=== PATIENT | female | born 1960 | race Caucasian/White ===

== ENCOUNTER → 2018-05-27 08:38 | Outpatient (CLI) | payer MEDICARE, SELFPAY ==
--- NOTE | 2018-05-27 08:50 | XR_ITS ---
XR DEXA axial skeleton HISTORY: ITS.REASON: POST MENOPAUSAL ORDERING PHYSICIAN: Matt Pretty JR PATIENT AGE: 58 years COMPARISON: 03/17/2014 FINDINGS: The BMD measured at the Right femoral neck is 0.831 g/cm squared with a T score of -1.5. This is considered Osteopenic according to the World Health Organization criteria. Fracture risk is Moderate. Treatment is advised. The L1 L4 density has a T score of 0.0 and is unchanged. The mean hip density has increased by 4.8%. IMPRESSION: Osteopenia with moderate fracture risk. Recommend follow-up exam May 2020
--- NOTE | 2018-05-27 08:51 | MM_ITS ---
MM Dig screening mamm BI w/CAD ORDERING PHYSICIAN : Matt Pretty JR PATIENT AGE: 58 years GENDER: Female COMPARISON: October bilateral mammogram INDICATION: ITS.REASON: SCREENING .. Does taking Female Hormones. With Estrogen noted prior history sheet as well. No new complaintsNoncontributory family history TECHNIQUE: Standard CC and MLO images were obtained. R2 CAD reviewed. FINDINGS: Mild to moderate residual fibroglandular elements in both breasts. Mild asymmetry again observed but appears similar to previous studies with no suspicious lesions. No dominant mass no suspicious calcifications. RIGHT BREAST:On today's less penetrated technique is slightly accentuated fibroglandular elements in the right breast but these appear similar to studies dating back to 2014 both distribution and density. Also the exogenous hormone effect likely advanced to the areas of density at the breast bilaterally. LEFT BREAST:No significant new findings. Follow-up in one year IMPRESSION: No significant new findings Similar mild asymmetry again observed Mild estrogen effect noted bilaterally appears most evident right breast Bilateral mammogram follow-up one year recommended, and should be emphasized BI-RADS Category: 2 Benign Finding(s) RECOMMENDED FOLLOW-UP: 1YR 1 YEAR FOLLOW-UP (A letter has been sent to the patient regarding results of the study.)
== END ==
PROVIDERS: Family Provider Family Medicine; PCP Obstetrics & Gynecology; Visit Provider Obstetrics & Gynecology
DX: Z12.31 Encounter for screening mammogram for malignant neoplasm of breast (principal); Z78.0 Asymptomatic menopausal state
CPT/HCPCS: 77067; 77080

== ENCOUNTER → 2019-02-18 14:54 | Outpatient (POV) | payer MEDICARE, SELFPAY | PROVIDERS: Visit Provider Dermatology | DX: Z00.00 Encounter for general adult medical examination without abnormal findings (principal) ==

== ENCOUNTER → 2019-10-22 17:04 | Outpatient (CLI) | payer MEDICARE, SELFPAY ==
--- NOTE | 2019-10-22 17:11 | MM_ITS ---
PROCEDURE: MM DIG SCREENING MAMM BI with 3D tomosynthesis CLINICAL INDICATION: SCREENING COMPARISON: [facility] DIG MAMM-SCREEN MAHENDRA from 03/17/2014 [facility] DIG MAMM-SCREEN MAHENDRA from 04/01/2015 [facility] DIG MAMM-SCREEN MAHENDRA W/CAD from 10/19/2016 DEXAAX XR DEXA axial skeleton from 05/27/2018 [facility] MM Dig screening mamm BI w/CAD from 05/27/2018 TECHNIQUE: Standard CC and MLO images were obtained. 3D tomosynthesis also performed. FINDINGS: Average fibroglandular tissue. No malignant appearing mass or malignant-appearing microcalcification there are scattered fibroglandular elements noted bilaterally IMPRESSION: BI-RAD Category: 1 Negative FOLLOW-UP: 1YR 1 Year Follow-up (A letter has been sent to the patient regarding results of the study.) Dictated by: Francisco Ansari MD 10/27/2019 18:25 Electronically signed by Francisco Ansari MD in [place] 10/27/2019 18:25
== END ==
PROVIDERS: Visit Provider Obstetrics & Gynecology
DX: Z12.31 Encounter for screening mammogram for malignant neoplasm of breast (principal)
CPT/HCPCS: 77063; 77067

== ENCOUNTER → 2021-02-04 13:33 | Outpatient (CLI) | payer MEDICARE, OTHER, SELFPAY ==
--- NOTE | 2021-02-04 13:44 | CA_ITS ---
APPROVED REPORT EXAM: Comprehensive 2D, Doppler, and color-flow Echocardiogram [employer]: Peggy Shrestha CRT Ht: 5 ft 5 in Wt: 209lbs BSA: 2.02 BP: 130/80 mmHg Indications: Diabetes, Hyperlipidemia, Hypertension/HDD, smoker 2D Dimensions LVOT 1.96 cm (M/F) 1.5-2.5 LA Volume 61.00 mL LA Volume Index 30.20 mL/m2 (M/F) 16-34 M-Mode Dimensions RVDd 2.50 cm (0.9-2.6) LA Diam 4.02 cm (1.9-4.0) LVDd 4.61 cm (3.5-5.7) Ao Diam 3.83 cm (2.0-3.7) LVDs 3.33 cm (3.5-5.7) IVSd 1.75 cm (0.6-1.1) PWd 1.04 cm (0.6-1.1) EF (Teich) 53.90% FS 27.80% EDV (Teich) 97.80 mL TAPSE 2.73 (<1.7) ESV (Teich) 45.10 mL LV Diastology E Decel Time 380.00 (160-240 msec) E/A Ratio 0.58 MED E' 5.40 (< 7 cm/sec) MED A' 7.60 cm/s E'/MED E' Ratio 15.52 (>14) LAT E' 5.40 (<10 cm/sec) LAT A' 12.00 cm/s E/LAT E' Ratio 15.52 (>14) Aortic Valve AI PHT 575.00 ms AO Peak GR. 16.70 mmHg Mitral Valve MV A Velocity 145.00 (40-130 cm/s) E/A Ratio 0.58 MV Decel. Time 380.00 (160-240 ms) Pulmonary Valve PV Peak Velocity 122.00 (50-150 cm/s) Tricuspid Valve TR P. Velocity 329.00 cm/s RAP Estimate 10.00 mmHg RVSP 53.30 mmHg Left Ventricle Left atrium is mildly enlarged, left ventricle is normal size, mild concentric left ventricular hypertrophy, visually estimated ejection fraction 55% with no regional wall motion abnormality, grade 1 diastolic dysfunction seen with tissue Doppler evidence of raise left atrial pressure. Right Ventricle Right atrium and right ventricle are mildly enlarged with normal contractility. Aortic Valve Aortic valve is thickened and calcified without aortic stenosis, there is mild aortic insufficiency. Mitral Valve Mitral valve leaflets are minimally thickened, there is mild mitral regurgitation. Tricuspid Valve Tricuspid grossly normal, there is mild tricuspid regurgitation, Pulmonic Valve Pulmonic valve is poorly visualized. Great Vessels Aortic root is normal size. Inferior vena cava is normal size with normal inspiratory collapse. Pericardium No significant pericardial effusion noted Conclusion 1. Mild biatrial enlargement, normal left ventricular size, mild concentric left ventricular hypertrophy, visually estimated ejection fraction 55% with no regional wall motion abnormality, grade 1 diastolic dysfunction seen with tissue Doppler evidence of raise left atrial pressure. 2. Mildly enlarged right ventricle with normal contractility. 3. Mild mitral aortic and tricuspid regurgitation. 4. No significant pericardial effusion noted, inferior vena cava is normal size with normal inspiratory collapse. Electronically signed by : Ivan Call, 02/04/2021 18:52:18
--- NOTE | 2021-02-04 13:45 | CA_ITS ---
APPROVED REPORT Configuration Management Specialist: Lisa Burns RVT Laterality: Bilateral Study Quality: Good Indications: LT BRUIT Risk Factors Hypertension: Hyperlipidemia Diabetes Doppler Spectral Velocity Analysis dICA (R) 49.20/17.10 cm/s ECA (L) 370.00/32.10 cm/s Kale (R) 75.90/28.90 cm/s pICA (R) 103.70/26.70 cm/s dICA (L) 128.30/34.20 cm/s Kale (L) 118.70/25.70 cm/s pICA (L) 114.40/20.30 cm/s dCCA (R) 77.00/17.10 cm/s pCCA (R) 82.30/13.90 cm/s dCCA (L) 67.40/10.70 cm/s Vert (R) 53.50/19.20 cm/s pCCA (L) 83.40/12.80 cm/s ICA/CCA 1.35 Vert (L) 44.80/16.70 cm/s ICA/CCA 1.90 Findings Study suggests 20-49% stenosis of the right internal cartoid artery. Study suggests 20-49% stenosis of the left internal cartoid artery. Antegrade flow seen bilateral vertebral arteries. Conclusion Study suggests 20-49% stenosis of the right internal cartoid artery. Study suggests 20-49% stenosis of the left internal cartoid artery. Antegrade flow seen bilateral vertebral arteries. Electronically signed by : Francisco Ansari MD 02/04/2021 17:04:39
--- NOTE | 2021-02-04 14:48 | CT_ITS ---
PROCEDURE: CT LUNG SCREENING CLINICAL INDICATION: H/O NICOTINE DEPENDENCE Former smoker Quit smoking 3 years ago 50 pack year smoking history Copd Family hx lung cancer COMPARISON: CT [facility] CT CHEST W/O CONTRAST from 10/07/2014 TECHNIQUE: The exam was performed on a GE Light Speed [address] scanner using 2.90 mGy CTDI. A low dose helical CT CHEST was performed on a multi-detector scanner. All CT scans at the facility use one or more dose reduction, viz: automated exposure control, ma/kV adjustment per patient size (including targeted exams where dose is matched to indication, i.e. head), or iterative reconstruction technique. The LDCT was performed in a facility that meets the criteria for the screening program. Data regarding this exam was submitted to ACR which is an approved registry. The order for this exam indicates that it came as a result of a lung cancer screening counseling shard decision-making visit that included all the elements required of such a visit including smoking cessation. The radiologist interpreting this exam meets the [facility] criteria for the LDCT lung cancer screening program. The exam is reported using the Lung-RADS classification scale and reported to the ACR registry. NOTE: This study was performed for the specific purposes of lung cancer screening and is not an alternative to diagnostic chest CT. RADIATION DOSE: CTDI vol(CT dose Index-volume) = 2.90mG DLP (Dose Length Product) = 108.64 mGcm FINDINGS: COPD with centrilobular emphysema. Old granulomatous disease. Stable 4 mm nodule right upper lobe posteriorly and 5 mm right upper nodule superiorly. Calcified granulomas right upper lobe. Mild diffuse bronchial thickening. Previously described patchy areas of infiltrate have improved. OTHER FINDINGS: Coronary artery calcifications. Old left-sided 8th 9th and 10th rib fractures. IMPRESSION: Lung-RADS Category 2 Benign Appearance or Behavior Follow-up: Continue annual screening with LDCT in 12 months Dictated by: Francisco Ansari MD 02/06/2021 07:02 Francisco Ansari MD in [place] 02/06/2021 07:02
== END ==
PROVIDERS: PCP Family Medicine; Visit Provider Family Medicine
DX: R01.1 Cardiac murmur, unspecified (principal); R09.89 Other specified symptoms and signs involving the circulatory and respiratory systems; I10 Essential (primary) hypertension; Z87.891 Personal history of nicotine dependence; Z12.2 Encounter for screening for malignant neoplasm of respiratory organs
CPT/HCPCS: 71271; 93306; 93880

== ENCOUNTER → 2021-06-21 10:13 | Outpatient (POV) | payer MEDICARE, OTHER, SELFPAY | PROVIDERS: Visit Provider Dermatology | DX: Z00.00 Encounter for general adult medical examination without abnormal findings (principal) ==

== ENCOUNTER 2024-08-15 22:18 | Observation (INO) | payer MEDICARE, SELFPAY ==
--- NOTE | 2024-08-15 22:23 | [facility].EDGENADL ---
Discharge Plan Disposition Patient Disposition: Admitted Clinical Impressions Clinical Impression: Pyelonephritis, Hyponatremia, Dehydration Discharge ED Provider: Rocky Pitts General Adult HPI <VAHE Potts - Last Filed: 08/15/24 22:27> General Chief complaint: Hyper/Hypoglycemia Stated complaint: blood sugar 372, feels foggy Time Seen by Provider: 08/15/24 22:23 Related Data Home Medications ?Medication ?Instructions ?Recorded ?Confirmed atorvastatin 10 mg tablet 20 mg PO DAILY Cholesterol 07/31/18 08/16/24 cyanocobalamin (vitamin B-12) 1,000 mcg PO DAILY Nasal congestion 07/31/18 11/15/19 1,000 mcg capsule estradiol 0.045 mg-levonorgestrel 1 each TD DAILY hormone 07/31/18 08/16/24 0.015 mg/24hr weekly transderm patch fluoxetine 40 mg capsule 40 mg PO DAILY Depression 07/31/18 08/16/24 glyburide 5 mg tablet 0 mg * BID dm 07/31/18 11/15/19 hydrochlorothiazide 25 mg tablet 25 mg PO DAILY bp 07/31/18 08/16/24 levothyroxine 50 mcg tablet 50 mcg PO DAILY thyroid 07/31/18 11/15/19 lisinopril 40 mg tablet 40 mg PO DAILY htn 07/31/18 11/15/19 meloxicam 7.5 mg tablet 7.5 mg PO DAILY anti-inflammatory 07/31/18 08/16/24 metformin 750 mg tablet,extended 750 mg PO DAILY Diabetes 07/31/18 08/16/24 release 24 hr ranitidine HCl 150 mg capsule 150 mg PO DAILY GERD 07/31/18 11/15/19 benazepril 40 mg tablet 40 mg PO DAILY 11/15/19 08/16/24 flu vacc [id number] 6mos up(PF) 60 IM 11/15/19 11/15/19 mcg(15 mcgx4)/0.5 mL IM syringe Previous Rx's ?Medication ?Instructions ?Recorded phenazopyridine 100 mg tablet 100 mg PO TID PRN pain 6 doses #6 11/15/19 (Pyridium) tabs sulfamethoxazole 800 1 tab PO BID 3 days #6 tabs 11/15/19 mg-trimethoprim 160 mg tablet Allergies Allergy/AdvReac Type Severity Reaction Status Date / Time No Known Allergies Allergy Verified 11/15/19 10:37 <Rosales Alvarado MD - Last Filed: 08/15/24 22:47> History of Present Illness HPI narrative: Please note that above description of symptoms, in this electronic medical record under categorization of recalled from ER triage doctor by RN are reflective of an initial nursing assessment, however, is not reflective of my full history and physical exam that was personally taken and clarified. Consequentially, this preceding description of symptoms, which may include the patient's categorized chief complaint in the EMR, do not reflect my personal clinical impression, and the ultimate description of history of present illness and patient stated complaints should be deferred to this section of the note. Unless stated otherwise or congruent with this section of the note, additional signs, symptoms, or incongruence should be interpreted as inaccurate with my clinical impression. [facility] <VAHE Potts - Last Filed: 08/15/24 22:27> [facility] Disclaimer: The information contained in this section may have been updated after the patient was seen, as this information can be updated by other users. Medical History (Updated 08/16/24 @ 03:40 by Rocky Pitts MD) Diabetes mellitus Acute bronchitis Social History Smoking Status: Former smoker tobacco type: e-cigarettes alcohol intake: never current occupational status: disabled Travel in the last 8 weeks: None Other Medical History Have you received the Pneumonia Vaccine: Yes <VAHE Potts - Last Filed: 08/15/24 22:27> ROS Obtained: Yes Systems reviewed as appropriate & no additional complaints except as documented Physical Exam <VAHE Potts - Last Filed: 08/15/24 22:27> General General appearance: alert and in no apparent distress Head Head exam: atraumatic and normal inspection Eye Eye exam: Present normal appearance, PERRL and EOMI ENT ENT exam: Present normal exam, normal oropharynx and mucous membranes moist Neck Neck exam: Present normal inspection, full ROM and trachea midline; Absent lymphadenopathy Chest Chest inspection: Present normal inspection and symmetric chest wall rise Respiratory Respiratory exam: Present normal lung sounds bilaterally; Absent accessory muscle use Cardiovascular Cardiovascular exam: Present regular rate, normal rhythm, normal heart sounds, +S1 and +S2 Abdominal Exam Abdominal exam: Present soft and normal bowel sounds; Absent tenderness, guarding or rebound Extremities Exam Extremities exam: Present normal inspection and full ROM Neurological Exam Neurological exam: Present alert, oriented X3 and CN II-XII intact Psychiatric Psychiatric exam: Present normal affect and normal mood Skin Skin exam: Present warm, dry and normal color Lymphatic Lymphatic Findings: no adenopathy Medical Decision Making <VAHE Potts - Last Filed: 08/15/24 22:27> Medical Records Screening: Per USPSTF and CDC recommendations, given the prevalence of disease in our region, it is our hospital?s policy to screen for HIV and viral Hepatitis for all patients aged 18 and over and those with ongoing risk factors. Vital Signs: 08/15/24 22:25 08/15/24 22:30 08/16/24 02:19 Temperature 97.6 F 97.6 F Temperature Source Oral Oral Pulse Rate 86 83 Pulse Rate [Apical] 87 Respiratory Rate 20 18 20 Blood Pressure 131/73 188/76 H Blood Pressure [Right Arm] 166/73 H Blood Pressure Mean [Right Arm] 104 Blood Pressure Source Automatic Cuff Blood Pressure Position Sitting 02 Sat by Pulse Oximetry 98 96 Oxygen Delivery Method Room Air Room Air Room Air Lab Data Lab Results 08/15/24 22:34: Sodium 126 L, Potassium 4.4, Chloride 92 L, Carbon Dioxide 23, Anion Gap 15.4 H, BUN 23 H, Creatinine 0.80, Estimated Creat Clear 80, Estimated GFR 72, Est GFR ( Amer) 87, Glucose 298 H, Calcium 10.9 H, Total Bilirubin 0.7, AST 35, ALT 32, Alkaline Phosphatase 116, Troponin I < 0.01, Total Protein 7.1, Albumin 4.2, Globulin 2.9, Albumin/Globulin Ratio 1.4, HIV 1&2 Antibody Rapid Nonreactive 08/15/24 22:38: VBG pH 7.39, VBG pCO2 40.7, VBG pO2 47.2 H, VBG HCO3 24.1, VBG Total CO2 25.4, VBG O2 Saturation 82.0 H, VBG Base Excess -0.8, VBG Lactic Acid 2.9 H 08/15/24 22:49: WBC 11.5 H, RBC 4.50, Hgb 13.2, Hct 39.3, MCV 87.3, MCH 29.4, MCHC 33.7, RDW 13.0, Plt Count 306, MPV 7.2 L, Neut % (Auto) 67.5, Lymph % (Auto) 24.1, [place] % (Auto) 3.7, Eos % (Auto) 3.2, Baso % (Auto) 1.5, Neut # (Auto) 7.8, Lymph # (Auto) 2.8, [place] # (Auto) 0.4, Eos # (Auto) 0.4, Baso # (Auto) 0.2, Hemoglobin A1c 9.4 H 08/15/24 23:00: Urine Color Yellow, Urine Appearance Clear, Urine pH 5.5, Ur Specific [place] 1.025, Urine Protein Negative, Urine Glucose (UA) 1+, Urine Ketones Negative, Urine Blood 1+ A, Urine Nitrate Negative, Urine Bilirubin Negative, Urine Urobilinogen 0.2, Ur Leukocyte Esterase Trace, Urine RBC 10-20, Urine WBC Tntc, Ur Squamous Epith Cells Tntc, Urine Bacteria 4+ 08/16/24 01:15: Troponin I 0.01 08/15/24 22:49 08/15/24 22:34 Orders (Tests/Meds): ED MEDICATIONS Generic Name Dose Route Start Last Admin Trade Name Freq PRN Reason Stop Dose Admin Acetaminophen 650 mg 08/16/24 02:14 Acetaminophen 325mg Tab PO 09/15/24 02:13 Q4HP PRN Fever or Mild Pain (1-3) Albuterol/Ipratropium 3 ml 08/16/24 02:17 Ipratropium/Albuterol 3 Ml Neb IH 09/15/24 02:16 Q4HP PRN Shortness Of Breath Insulin Human Lispro 0 unit 08/16/24 06:00 Humalog 100 Units/Ml 10ml Vial (Ssi) SUBCUT 09/15/24 05:59 ACHS DANISH Protocol Ondansetron HCl 4 mg 08/16/24 02:14 Ondansetron 4mg/2ml Vial IV 09/15/24 02:13 Q8HP PRN Nausea Pantoprazole Sodium 40 mg 08/16/24 21:00 Pantoprazole 40mg Tablet PO 09/15/24 20:59 HS DANISH Sodium Chloride 10 ml 08/16/24 02:14 Sodium Chloride 0.9% 10ml Flush Syringe IV 09/15/24 02:13 NEEDED PRN Maintain IV Site Discontinued Medications Generic Name Dose Route Start Last Admin Trade Name Freq PRN Reason Stop Dose Admin Sodium Chloride 1,000 mls @ 999 mls/hr 08/15/24 23:27 08/15/24 23:31 Sod Chlor 0.9% 1000ml Bag IV 08/16/24 00:27 999 mls/hr .Q1H1M ONE Administration Ceftriaxone Sodium 1 gm/ 50 mls @ 100 mls/hr 08/15/24 23:49 08/16/24 01:20 Sodium Chloride IV 08/16/24 00:18 100 mls/hr ONCE ONE Administration ORDERS Category Date Time Status XR chest portable Stat Exams 08/15/24 22:38 Completed Complete Blood Count Auto Diff AMLAB Lab 08/16/24 06:00 Ordered Complete Blood Count Auto Diff Stat Lab 08/15/24 22:49 Completed Comprehensive Metabolic Panel AMLAB Lab 08/16/24 06:00 Ordered Comprehensive Metabolic Panel Stat Lab 08/15/24 22:34 Completed HIV (1&2) Antibody Rapid Stat Lab 08/15/24 22:34 Completed Hemoglobin A1C Stat Lab 08/15/24 22:49 Completed Hep C Ab with Reflex to RNA Stat Lab 08/15/24 22:34 Received Magnesium AMLAB Lab 08/16/24 06:00 Ordered Troponin I Q3H Lab 08/16/24 01:15 Completed Troponin I Q3H Lab 08/16/24 04:45 Ordered Troponin I Stat Lab 08/15/24 22:34 Completed Urinalysis and Microscopic Stat Lab 08/15/24 23:00 Completed Blood Culture Stat Micro 08/16/24 01:15 Received Urine Culture Stat Micro 08/15/24 23:00 Received Venous Blood Gas Stat RT 08/15/24 22:38 Completed Medical Decision Narrative: In summary patient is a [age, sex] who presents to the emergency department for evaluation of [complaint]. Patient is [hemodynamically stable/unstable] upon arrival, [febrile/afebrile]. [Unremarkable physical exam, nonfocal exam versus focal remarkable exam]. Differential diagnosis includes [DDx]. Initial workup will be conducted with [hematologic labs, imaging, respiratory swab, describe workup]. Initial interventions include [crystalloid bolus, medications, p.o. challenge, etc.] initial workup reviewed by me [hematologic labs are remarkable for... Imaging remarkable for... Urinalysis remarkable for]. Upon repeat evaluation [patient had acceptable resolution of symptoms, had persistent pain for which additional interventions were conducted (describe interventions), tolerated p.o., was ambulatory, etc.]. Given this [patient is appropriate for discharge at this time and will be discharged with a prescription for... The case was discussed with hospital medicine regarding management and they will admit the patient their service for continued evaluation at this time... Etc.] Places where you can increase complexity: I informally interpreted the patient's chest x-ray or CT read and is remarkable for... Documenting what the monitor tech shows with rate and rhythm Consideration of test but deferring. Ex: I considered chest x-ray on this patient however given that they have no oxygen requirement and are clear to auscultation all lung edward will be deferred. Social determinants of health: Given that patient is undomiciled increases complexity. Given that patient has polysubstance abuse compounds all aspects of care <Rosales Alvarado MD - Last Filed: 08/15/24 22:47> Medical Records Medical records reviewed: Yes I reviewed the patient's medical records. Jake Inquiry Pt receiving controlled substance: No Jake was queried for this patient: No Vital Signs: 08/15/24 22:25 08/15/24 22:30 08/16/24 02:19 Temperature 97.6 F 97.6 F Temperature Source Oral Oral Pulse Rate 86 83 Pulse Rate [Apical] 87 Respiratory Rate 20 18 20 Blood Pressure 131/73 188/76 H Blood Pressure [Right Arm] 166/73 H Blood Pressure Mean [Right Arm] 104 Blood Pressure Source Automatic Cuff Blood Pressure Position Sitting 02 Sat by Pulse Oximetry 98 96 Oxygen Delivery Method Room Air Room Air Room Air Lab Data Lab Results 08/15/24 22:34: Sodium 126 L, Potassium 4.4, Chloride 92 L, Carbon Dioxide 23, Anion Gap 15.4 H, BUN 23 H, Creatinine 0.80, Estimated Creat Clear 80, Estimated GFR 72, Est GFR ( Amer) 87, Glucose 298 H, Calcium 10.9 H, Total Bilirubin 0.7, AST 35, ALT 32, Alkaline Phosphatase 116, Troponin I < 0.01, Total Protein 7.1, Albumin 4.2, Globulin 2.9, Albumin/Globulin Ratio 1.4, HIV 1&2 Antibody Rapid Nonreactive 08/15/24 22:38: VBG pH 7.39, VBG pCO2 40.7, VBG pO2 47.2 H, VBG HCO3 24.1, VBG Total CO2 25.4, VBG O2 Saturation 82.0 H, VBG Base Excess -0.8, VBG Lactic Acid 2.9 H 08/15/24 22:49: WBC 11.5 H, RBC 4.50, Hgb 13.2, Hct 39.3, MCV 87.3, MCH 29.4, MCHC 33.7, RDW 13.0, Plt Count 306, MPV 7.2 L, Neut % (Auto) 67.5, Lymph % (Auto) 24.1, [place] % (Auto) 3.7, Eos % (Auto) 3.2, Baso % (Auto) 1.5, Neut # (Auto) 7.8, Lymph # (Auto) 2.8, [place] # (Auto) 0.4, Eos # (Auto) 0.4, Baso # (Auto) 0.2, Hemoglobin A1c 9.4 H 08/15/24 23:00: Urine Color Yellow, Urine Appearance Clear, Urine pH 5.5, Ur Specific [place] 1.025, Urine Protein Negative, Urine Glucose (UA) 1+, Urine Ketones Negative, Urine Blood 1+ A, Urine Nitrate Negative, Urine Bilirubin Negative, Urine Urobilinogen 0.2, Ur Leukocyte Esterase Trace, Urine RBC 10-20, Urine WBC Tntc, Ur Squamous Epith Cells Tntc, Urine Bacteria 4+ 08/16/24 01:15: Troponin I 0.01 Orders (Tests/Meds): ED MEDICATIONS Generic Name Dose Route Start Last Admin Trade Name Saniya PRN Reason Stop Dose Admin Acetaminophen 650 mg 08/16/24 02:14 Acetaminophen 325mg Tab PO 09/15/24 02:13 Q4HP PRN Fever or Mild Pain (1-3) Albuterol/Ipratropium 3 ml 08/16/24 02:17 Ipratropium/Albuterol 3 Ml [facility] 09/15/24 02:16 Q4HP PRN Shortness Of Breath Insulin Human Lispro 0 unit 08/16/24 06:00 Humalog 100 Units/Ml 10ml Vial (Ssi) SUBCUT 09/15/24 05:59 ACHS DANISH Protocol Ondansetron HCl 4 mg 08/16/24 02:14 Ondansetron 4mg/2ml Vial IV 09/15/24 02:13 Q8HP PRN Nausea Pantoprazole Sodium 40 mg 08/16/24 21:00 Pantoprazole 40mg Tablet PO 09/15/24 20:59 HS DANISH Sodium Chloride 10 ml 08/16/24 02:14 Sodium Chloride 0.9% 10ml Flush Syringe IV 09/15/24 02:13 NEEDED PRN Maintain IV Site Discontinued Medications Generic Name Dose Route Start Last Admin Trade Name Saniya PRN Reason Stop Dose Admin Sodium Chloride 1,000 mls @ 999 mls/hr 08/15/24 23:27 08/15/24 23:31 Sod Chlor 0.9% 1000ml Bag IV 08/16/24 00:27 999 mls/hr .Q1H1M ONE Administration Ceftriaxone Sodium 1 gm/ 50 mls @ 100 mls/hr 08/15/24 23:49 08/16/24 01:20 Sodium Chloride IV 08/16/24 00:18 100 mls/hr ONCE ONE Administration ORDERS Category Date Time Status XR chest portable Stat Exams 08/15/24 22:38 Completed Complete Blood Count Auto Diff AMLAB Lab 08/16/24 06:00 Ordered Complete Blood Count Auto Diff Stat Lab 08/15/24 22:49 Completed Comprehensive Metabolic Panel AMLAB Lab 08/16/24 06:00 Ordered Comprehensive Metabolic Panel Stat Lab 08/15/24 22:34 Completed HIV (1&2) Antibody Rapid Stat Lab 08/15/24 22:34 Completed Hemoglobin A1C Stat Lab 08/15/24 22:49 Completed Hep C Ab with Reflex to RNA Stat Lab 08/15/24 22:34 Received Magnesium AMLAB Lab 08/16/24 06:00 Ordered Troponin I Q3H Lab 08/16/24 01:15 Completed Troponin I Q3H Lab 08/16/24 04:45 Ordered Troponin I Stat Lab 08/15/24 22:34 Completed Urinalysis and Microscopic Stat Lab 08/15/24 23:00 Completed Blood Culture Stat Micro 08/16/24 01:15 Received Urine Culture Stat Micro 08/15/24 23:00 Received Venous Blood Gas Stat RT 08/15/24 22:38 Completed Medical Decision Narrative: 64-year-old female history of diabetes presenting with hyperglycemia. Patient states that her sugars have been running high the past couple of days. Was higher than 360 today. She also states that she was recently started on a steroid for a respiratory infection that she has had for months. Last steroid dose was taken yesterday, 08/14. Denies chest pain, shortness of breath, nausea or vomiting, fevers or chills, urinary symptoms, abdominal pain, or any other symptoms at all. States that she has been intermittently forgetful, but no overt confusion or other neurologic deficits. History was obtained via conversation with patient. On arrival, patient hemodynamically stable, alert, oriented x4, appropriate, GCS 15, moving all extremities spontaneously, pupils equal and reactive to light. Full physical exam performed and significant for 64-year-old female no acute distress. Cardiopulmonary exam normal. Abdominal exam normal. Neurologically intact, unremarkable exam overall. Differential includes iatrogenic, urinary tract infection, pneumonia, ischemia, medication noncompliance, among others. Patient placed on continuous cardiac monitoring and continuous pulse ox with initial blood pressure 166/73, heart rate 87, saturation 98% on room air. Prior to workup, labs, imaging, EKG, etc., care and off to oncoming physician. I feel this is likely client care representative of hyperglycemia in the setting of diabetes with steroid use. Disposition pending. Guest Service Team Leader disclaimer Much of this encounter note is an electronic mortgage analyst spoken language to printed text. Electronic mortgage analyst of the spoken language may permit errors. Although I have reviewed the note, some errors may still exist. <Rocky Pitts MD - Last Filed: 08/16/24 03:40> Vital Signs: 08/15/24 22:25 08/15/24 22:30 08/16/24 02:19 Temperature 97.6 F 97.6 F Temperature Source Oral Oral Pulse Rate 86 83 Pulse Rate [Apical] 87 Respiratory Rate 20 18 20 Blood Pressure 131/73 188/76 H Blood Pressure [Right Arm] 166/73 H Blood Pressure Mean [Right Arm] 104 Blood Pressure Source Automatic Cuff Blood Pressure Position Sitting 02 Sat by Pulse Oximetry 98 96 Oxygen Delivery Method Room Air Room Air Room Air Lab Data Lab Results 08/15/24 22:34: Sodium 126 L, Potassium 4.4, Chloride 92 L, Carbon Dioxide 23, Anion Gap 15.4 H, BUN 23 H, Creatinine 0.80, Estimated Creat Clear 80, Estimated GFR 72, Est GFR ( Amer) 87, Glucose 298 H, Calcium 10.9 H, Total Bilirubin 0.7, AST 35, ALT 32, Alkaline Phosphatase 116, Troponin I < 0.01, Total Protein 7.1, Albumin 4.2, Globulin 2.9, Albumin/Globulin Ratio 1.4, HIV 1&2 Antibody Rapid Nonreactive 08/15/24 22:38: VBG pH 7.39, VBG pCO2 40.7, VBG pO2 47.2 H, VBG HCO3 24.1, VBG Total CO2 25.4, VBG O2 Saturation 82.0 H, VBG Base Excess -0.8, VBG Lactic Acid 2.9 H 08/15/24 22:49: WBC 11.5 H, RBC 4.50, Hgb 13.2, Hct 39.3, MCV 87.3, MCH 29.4, MCHC 33.7, RDW 13.0, Plt Count 306, MPV 7.2 L, Neut % (Auto) 67.5, Lymph % (Auto) 24.1, [place] % (Auto) 3.7, Eos % (Auto) 3.2, Baso % (Auto) 1.5, Neut # (Auto) 7.8, Lymph # (Auto) 2.8, [place] # (Auto) 0.4, Eos # (Auto) 0.4, Baso # (Auto) 0.2, Hemoglobin A1c 9.4 H 08/15/24 23:00: Urine Color Yellow, Urine Appearance Clear, Urine pH 5.5, Ur Specific [place] 1.025, Urine Protein Negative, Urine Glucose (UA) 1+, Urine Ketones Negative, Urine Blood 1+ A, Urine Nitrate Negative, Urine Bilirubin Negative, Urine Urobilinogen 0.2, Ur Leukocyte Esterase Trace, Urine RBC 10-20, Urine WBC Tntc, Ur Squamous Epith Cells Tntc, Urine Bacteria 4+ 08/16/24 01:15: Troponin I 0.01 Orders (Tests/Meds): ED MEDICATIONS Generic Name Dose Route Start Last Admin Trade Name Freq PRN Reason Stop Dose Admin Acetaminophen 650 mg 08/16/24 02:14 Acetaminophen 325mg Tab PO 09/15/24 02:13 Q4HP PRN Fever or Mild Pain (1-3) Albuterol/Ipratropium 3 ml 08/16/24 02:17 Ipratropium/Albuterol 3 Ml [facility] 09/15/24 02:16 Q4HP PRN Shortness Of Breath Insulin Human Lispro 0 unit 08/16/24 06:00 Humalog 100 Units/Ml 10ml Vial (Ssi) SUBCUT 09/15/24 05:59 ACHS DANISH Protocol Ondansetron HCl 4 mg 08/16/24 02:14 Ondansetron 4mg/2ml Vial IV 09/15/24 02:13 Q8HP PRN Nausea Pantoprazole Sodium 40 mg 08/16/24 21:00 Pantoprazole 40mg Tablet PO 09/15/24 20:59 HS DANISH Sodium Chloride 10 ml 08/16/24 02:14 Sodium Chloride 0.9% 10ml Flush Syringe IV 09/15/24 02:13 NEEDED PRN Maintain IV Site Discontinued Medications Generic Name Dose Route Start Last Admin Trade Name Freq PRN Reason Stop Dose Admin Sodium Chloride 1,000 mls @ 999 mls/hr 08/15/24 23:27 08/15/24 23:31 Sod Chlor 0.9% 1000ml Bag IV 08/16/24 00:27 999 mls/hr .Q1H1M ONE Administration Ceftriaxone Sodium 1 gm/ 50 mls @ 100 mls/hr 08/15/24 23:49 08/16/24 01:20 Sodium Chloride IV 08/16/24 00:18 100 mls/hr ONCE ONE Administration ORDERS Category Date Time Status XR chest portable Stat Exams 08/15/24 22:38 Completed Complete Blood Count Auto Diff AMLAB Lab 08/16/24 06:00 Ordered Complete Blood Count Auto Diff Stat Lab 08/15/24 22:49 Completed Comprehensive Metabolic Panel AMLAB Lab 08/16/24 06:00 Ordered Comprehensive Metabolic Panel Stat Lab 08/15/24 22:34 Completed HIV (1&2) Antibody Rapid Stat Lab 08/15/24 22:34 Completed Hemoglobin A1C Stat Lab 08/15/24 22:49 Completed Hep C Ab with Reflex to RNA Stat Lab 08/15/24 22:34 Received Magnesium AMLAB Lab 08/16/24 06:00 Ordered Troponin I Q3H Lab 08/16/24 01:15 Completed Troponin I Q3H Lab 08/16/24 04:45 Ordered Troponin I Stat Lab 08/15/24 22:34 Completed Urinalysis and Microscopic Stat Lab 08/15/24 23:00 Completed Blood Culture Stat Micro 08/16/24 01:15 Received Urine Culture Stat Micro 08/15/24 23:00 Received Venous Blood Gas Stat RT 08/15/24 22:38 Completed Medical Decision Narrative: 64-year-old female history of diabetes presenting with hyperglycemia. Patient states that her sugars have been running high the past couple of days. Was higher than 360 today. She also states that she was recently started on a steroid for a respiratory infection that she has had for months. Last steroid dose was taken yesterday, 08/14. Denies chest pain, shortness of breath, nausea or vomiting, fevers or chills, urinary symptoms, abdominal pain, or any other symptoms at all. States that she has been intermittently forgetful, but no overt confusion or other neurologic deficits. History was obtained via conversation with patient. On arrival, patient hemodynamically stable, alert, oriented x4, appropriate, GCS 15, moving all extremities spontaneously, pupils equal and reactive to light. Full physical exam performed and significant for 64-year-old female no acute distress. Cardiopulmonary exam normal. Abdominal exam normal. Neurologically intact, unremarkable exam overall. Differential includes iatrogenic, urinary tract infection, pneumonia, ischemia, medication noncompliance, among others. Patient placed on continuous cardiac monitoring and continuous pulse ox with initial blood pressure 166/73, heart rate 87, saturation 98% on room air. Prior to workup, labs, imaging, EKG, etc., care and off to oncoming physician. I feel this is likely client care representative of hyperglycemia in the setting of diabetes with steroid use. Disposition pending. Guest Service Team Leader disclaimer Much of this encounter note is an electronic mortgage analyst spoken language to printed text. Electronic mortgage analyst of the spoken language may permit errors. Although I have reviewed the note, some errors may still exist. Gisselle MARQUES: I assumed care of the patient at the time of handoff from the prior provider. On reassessment patient remains hemodynamically stable. Laboratories all significant for hyponatremia at 126. Corrected sodium is still below 130. Patient also has an elevated BUN, mildly elevated anion gap, elevated calcium, elevated lactate of 2.9. Her urinalysis is remarkable for too numerous to count WBCs and 4+ bacteria. Chest x-ray was interpreted by me and shows atelectasis versus opacity in the right basilar area. I had extensive discussion with patient regarding her presentation. She reports that she feels better from a respiratory standpoint after the antibiotics and steroids that she was given, but she has been weak and dizzy for the last couple of days, has had excessive urination and has had bilateral low and mid back pain. Given the weakness and sensation of being off balance, I am concerned she could have symptomatic hyponatremia. Given the grossly infected urine and the new/worsened back pain, I am concerned she could have pyelonephritis. I think patient would benefit from admission for IV antibiotic therapy and correction of electrolyte derangements. Critical Care <Rosales Alvarado MD - Last Filed: 08/15/24 22:47> Critical Care Time Critical Care Time: No
[2024-08-15 22:25] VITALS: BP 166/73; PULSE 87; RESP 20; TEMP 36.4; O2SAT 98; BMI 33.3
[2024-08-15 22:30] VITALS: BP 131/73; PULSE 86; RESP 18; O2SAT 96
--- NOTE | 2024-08-15 22:38 | XR_ITS ---
PROCEDURE INFORMATION: Exam: XR Chest Exam date and time: 08/15/2024 10:47 PM Age: 64 years old Clinical indication: Other: Unwell; Additional info: Hyperglycemia, unwell feeling TECHNIQUE: Imaging protocol: Radiologic exam of the chest. Views: 1 view. Total images: 1 COMPARISON: No relevant prior studies available. FINDINGS: Lungs: Right basilar atelectasis versus infiltrate. The left lung is clear. Right apical calcified granuloma. No vascular congestion or pulmonary edema. Pleural spaces: Unremarkable. No pleural effusion. No pneumothorax. Heart/Mediastinum: Unremarkable. No cardiomegaly. No mediastinal widening or hilar enlargement. Vasculature: Mildly atherosclerotic aortic arch. Bones/joints: Mild osteopenia. Partially visualized mild degenerative changes thoracic spine. IMPRESSION: Mild right basilar atelectasis versus infiltrate.
[2024-08-15 22:43] LABS: VBG Base Excess -0.8 mmol/L (-2.4-2.3); VBG HCO3 24.1 mmol/L (23-30); VBG PCO2 40.7 mmol/L (35-51); VBG PH 7.39 mmol/L (7.31-7.41); VBG PO2 47.2 mmol/L (28-40); VBG Total CO2 25.4 mmol/L (23-27)
[2024-08-15 22:44] LABS: Lactate Venous 2.9 mmol/L (0.4-2.0)
[2024-08-15 22:57] LABS: Basophils # 0.2 K/mm3 (0-0.2); Basophils % 1.5 % (0.1-2.0); Eosinophils # 0.4 K/mm3 (0.0-0.4); Eosinophils % 3.2 % (0.1-12.0); Hematocrit 39.3 % (37.0-47.0); Hemoglobin 13.2 g/dL (12.2-16.2); Lymphocytes # 2.8 K/mm3 (0.7-4.5); Lymphocytes % 24.1 % (10-50); Mean Corpuscular HGB Conc 33.7 g/dL (31.8-35.4); Mean Corpuscular Hemoglobin 29.4 pg (27.0-31.2); Mean Corpuscular Volume 87.3 fl (81-99); Mean Platelet Volume 7.2 fl (7.4-10.4); Monocytes # 0.4 K/mm3 (0.1-1.0); Monocytes % 3.7 % (1.7-9.3); Neutrophils # 7.8 K/mm3 (1.8-7.8); Neutrophils % 67.5 % (37.0-80.0); Platelet Count 306 K/mm3 (142-424); White Blood Count 11.5 K/mm3 (4.8-10.8)
--- NOTE | 2024-08-15 23:01 | ECG_ITS ---
APPROVED REPORT Exam: Resting ECG HR:79 bpm ECG Measurements Heart Rate 79 AXES AK 153 P -11 QRSd 93 QRS 54 QT 383 T 70 QTc 418 Conclusion SINUS RHYTHM NORMAL ECG UNCONFIRMED REPORT Electronically signed by : DEBI MEYER, 08/17/2024 04:02:59
[2024-08-15 23:03] LABS: Alanine Aminotransferase 32 U/L (12-78); Albumin Level 4.2 g/dl (3.5-5.0); Albumin/Globulin Ratio 1.4 (1.1-1.8); Alkaline Phosphatase 116 U/L (38-126); Anion Gap 15.4 mEq/L (5-15); Aspartate Amino Transferase 35 U/L (14-36); Bilirubin,Total 0.7 mg/dl (0.2-1.3); Blood Urea Nitrogen 23 mg/dl (7-17); Calcium 10.9 mg/dl (8.4-10.2); Carbon Dioxide 23 mmol/L (22.0-30.0); Chloride 92 mmol/L (98-107); Creatinine Clearance Estimated 80 mL/min (50-200); Estimated Glomerular Filt Rate 72 ml/min (>60); GFR (African American) 87 ML/MIN (>60); Globulin 2.9 g/dL (1.3-3.2); Glucose 298 mg/dl (74-100); Potassium 4.4 mmoL/L (3.5-5.1); Sodium 126 mmol/L (136-145); Total Protein,Serum 7.1 g/dl (6.3-8.2)
[2024-08-15 23:05] LABS: Appearance,Urine CLEAR (Clear); Bilirubin,Urine Negative (Negative); Blood, Urine 1+ (Negative); Color,Urine YELLOW (Yellow); Glucose,Urine (UA) 1+ (Negative); Ketones,Urine Negative (Negative); Leukocyte Esterase,Urine TRACE (Negative); Microscopic, Urine URINE MICROSCOPIC (MICROSCOPIC); Nitrate,Urine Negative (Negative); PH,Urine 5.5 (5.0-8.5); Protein,Urine Negative (Negative); Specific Gravity, Urine 1.025 (1.005-1.030); Urobilinogen,Urine 0.2 EU/dl (0.2)
[2024-08-15 23:17] LABS: Troponin I < 0.01 ng/ml (0.00-0.034)
[2024-08-15 23:21] LABS: Hemoglobin A1C 9.4 % (4.0-6.0)
[2024-08-15 23:26] LABS: Bacteria,Urine 4+ /lpf; Squamous Epithelial Cell,Urine TNTC #/hpf (0-5); WBC,Urine TNTC #/hpf (0-3)
[2024-08-15] MEDS: 0.9 % SODIUM CHLORIDE 1000ML 1,000 ML 999 ML IV (23:31)
[2024-08-16] MEDS: CEFTRIAXONE 1 GM 1 GM in 0.9 % SODIUM CHLORIDE 50 ML IV ×2 (01:20→15:22)
[2024-08-16 01:55] LABS: HIV (1&2) Antibody Rapid NONREACTIVE (NONREACTIVE)
[2024-08-16 01:56] LABS: Troponin I 0.01 ng/ml (0.00-0.034)
--- NOTE | 2024-08-16 02:18 | PC.NURSE ---
report called to Otis CERDA
[2024-08-16 02:19] VITALS: BP 188/76; PULSE 83; RESP 20; TEMP 36.4; O2SAT 97
--- NOTE | 2024-08-16 02:26 | P.HP_ITS ---
<Statement entered by Los Alaniz MD - 08/17/24 22:46> I personally examined patient and agree with DRY ROOM OPERATOR's plan of care. History of Present Illness *Admission Date: 08/16/24 *Reason for visit:: Possible pyelonephritis, hyponatremia, large amounts of WBCs in urine, *History of present illness: This 64-year-old female who is a patient of Dr. Vora., Was seen approximately a week ago due to a terrible cough. She was placed on what sounds to be a prednisone Dosepak and also azithromycin. She has taken these and finished the last pills a day or so ago, but has continued to feel poorly. And also having back pain. Denies any dysuria, but on exam is noted to have right CVA tenderness, labs show that she is quite hyponatremic down into the 120s, WBCs in the urine numerous to count bacteria in the .urin negative for leuks and nitrites . Patient also noted still having a cough but denies any shortness of breath chest x-ray showed some right basilar atelectasis versus an infiltrate . After talking with the ER physician and the patient. I do feel it is prudent to go ahead and admit her to correct hypo-hyponatremia, and also monitor urine and for CVA tenderness.. She has received 1 dose of Rocephin in the emergency room. She has no fever at this time. But noted that her hemoglobin A1c is 9.4 and her only medication has been metformin. History of insulin use in the past but lost weight and stopped that after 3 months., Is noted several years ago 2015 being into the hospital for a week due to a respiratory infection. Patient noted that she had smoked for more than 30 years but she stopped that 6 years ago but continues to vape. So I do agree with the ER physician that she is fragile at this point in time and do not want to miss sending her home and having pyelonephritis or worsening hyponatremia to occur.. For this reason I will admit her to the floor start her on regular food IV fluids are not needed at this time. She did receive 1 L of normal saline in the emergency room. Noting that there is no other information and our medical record on her since 2019 [facility] Disclaimer: The information contained in this section may have been updated after the patient was seen, as this information can be updated by other users. Medical History (Updated 08/16/24 @ 02:44 by Forest Lloyd APRN) Diabetes mellitus Acute bronchitis Social History Smoking Status: Former smoker tobacco type: e-cigarettes alcohol intake: never current occupational status: disabled Travel in the last 8 weeks: None Other Medical History Have you received the Pneumonia Vaccine: Yes Review of Systems Review of Systems Review of systems:: pertinent systems reviewed and negative unless documented below Constitutional Constitutional: Reports system reviewed and no additional complaints, except as documented Comments: Has been ill for about a week to 10 days., Cough is better but feeling very weak and washed out Eyes Eyes: Reports system reviewed and no additional complaints, except as documented ENT Ears, Nose, Mouth, and Throat: Reports as per HPI *Cardiovascular Cardiovascular: Reports as per HPI *Respiratory Respiratory: Reports as per HPI *Gastrointestinal Gastrointestinal: Reports as per HPI *Genitourinary Genitourinary: Reports as per HPI Comments: Noting back pain *Musculoskeletal Musculoskeletal: Reports as per HPI Integumentary/Breasts Skin/Breast: Reports as per HPI *Neurologic Neurologic: Reports as per HPI Psychiatric Psychiatric: Reports as per HPI Endocrine Endocrine: Reports as per HPI Hematologic/Lymphatic Hematologic/Lymphatic: Reports as per HPI Allergic/Immunologic Allergic/Immunologic: Reports as per HPI Meds Home Medications and Allergies Home Medications ?Medication ?Instructions ?Recorded ?Confirmed ?Type atorvastatin 10 mg tablet 10 mg PO DAILY Cholesterol 07/31/18 11/15/19 History cyanocobalamin (vitamin B-12) 1,000 mcg PO DAILY Nasal congestion 07/31/18 11/15/19 History 1,000 mcg capsule estradiol 0.045 mg-levonorgestrel 1 each TD DAILY hormone 07/31/18 11/15/19 History 0.015 mg/24hr weekly transderm patch fluoxetine 40 mg capsule 40 mg PO DAILY Depression 07/31/18 11/15/19 History glyburide 5 mg tablet 0 mg * BID dm 07/31/18 11/15/19 History hydrochlorothiazide 25 mg tablet 25 mg PO DAILY bp 07/31/18 11/15/19 History levothyroxine 50 mcg tablet 50 mcg PO DAILY thyroid 07/31/18 11/15/19 History lisinopril 40 mg tablet 40 mg PO DAILY htn 07/31/18 11/15/19 History meloxicam 7.5 mg tablet 7.5 mg PO DAILY anti-inflammatory 07/31/18 11/15/19 History metformin 750 mg tablet,extended 750 mg PO DAILY Diabetes 07/31/18 11/15/19 History release 24 hr ranitidine HCl 150 mg capsule 150 mg PO DAILY GERD 07/31/18 11/15/19 History benazepril 40 mg tablet PO 11/15/19 11/15/19 History flu vacc [id number] 6mos up(PF) 60 IM 11/15/19 11/15/19 History mcg(15 mcgx4)/0.5 mL IM syringe phenazopyridine 100 mg tablet 100 mg PO TID PRN pain 6 doses #6 11/15/19 11/15/19 Rx (Pyridium) tabs sulfamethoxazole 800 1 tab PO BID 3 days #6 tabs 11/15/19 11/15/19 Rx mg-trimethoprim 160 mg tablet New Prescriptions to Start Prescriptions: Allergies Allergy/AdvReac Type Severity Reaction Status Date / Time No Known Allergies Allergy Verified 11/15/19 10:37 Exam Data for Last 24 hours Vital signs and Labs for Last 24 Hours: Temp Pulse Resp BP Pulse Ox O2 Del Method 97.6 F 83 20 188/76 H 96 Room Air 08/16/24 02:19 08/16/24 02:19 08/16/24 02:19 08/16/24 02:19 08/15/24 22:30 08/16/24 02:19 Laboratory Results - last 24 hr 08/15/24 22:34: Sodium 126 L, Potassium 4.4, Chloride 92 L, Carbon Dioxide 23, A nion Gap 15.4 H, BUN 23 H, Creatinine 0.80, Estimated Creat Clear 80, Estimated GFR 72, Est GFR ( Amer) 87, Glucose 298 H, Calcium 10.9 H, Total Bilirubin 0.7, AST 35, ALT 32, Alkaline Phosphatase 116, Troponin I < 0.01, Total Protein 7.1, Albumin 4.2, Globulin 2.9, Albumin/Globulin Ratio 1.4, HIV 1&2 Antibody Rapid Nonreactive 08/15/24 22:38: VBG pH 7.39, VBG pCO2 40.7, VBG pO2 47.2 H, VBG HCO3 24.1, VBG Total CO2 25.4, VBG O2 Saturation 82.0 H, VBG Base Excess -0.8, VBG Lactic Acid 2.9 H 08/15/24 22:49: WBC 11.5 H, RBC 4.50, Hgb 13.2, Hct 39.3, MCV 87.3, MCH 29.4, MCHC 33.7, RDW 13.0, Plt Count 306, MPV 7.2 L, Neut % (Auto) 67.5, Lymph % (Auto) 24.1, Pickett % (Auto) 3.7, Eos % (Auto) 3.2, Baso % (Auto) 1.5, Neut # (Auto) 7.8, Lymph # (Auto) 2.8, Pickett # (Auto) 0.4, Eos # (Auto) 0.4, Baso # (Auto) 0.2, Hemoglobin A1c 9.4 H 08/15/24 23:00: Urine Color Yellow, Urine Appearance Clear, Urine pH 5.5, Ur Specific Gaines 1.025, Urine Protein Negative, Urine Glucose (UA) 1+, Urine Ketones Negative, Urine Blood 1+ A, Urine Nitrate Negative, Urine Bilirubin Negative, Urine Urobilinogen 0.2, Ur Leukocyte Esterase Trace, Urine RBC 10-20, Urine WBC Tntc, Ur Squamous Epith Cells Tntc, Urine Bacteria 4+ 08/16/24 01:15: Troponin I 0.01 I & O for Last 24 hours: Intake & Output 08/13/24 08/14/24 08/15/24 08/16/24 23:59 23:59 23:59 23:59 Weight 90.718 kg Radiology Reports for the Last 24 Hours: I have examined and do agree the chest x-ray there is atelectasis versus some infiltrate still in the basilar area of the right lung, cardiac silhouette normal size Narrative: Patient sees Dr. Huggins but none of the information from his office is showing up in the medical record. Only have 1 entry from 2021 review Constitutional Constitutional: no acute distress and obese *Routine HEENT Exam Head: Present normocephalic and atraumatic Eye: Present EOMI, PERRL and normal accommodation ENT: Present mucous membranes moist, oropharynx clear, dentition normal and nares patent *Routine Neck Exam Neck: Present supple and full ROM Comments: No lymphadenopathy found on exam of the neck Routine Chest/Breast/Axilla Exam Comments: No chest wall tenderness was found patient had no complaints of any breast pain *Routine Respiratory Exam Respiratory: Present CTA bilaterally, normal respiratory effort, able to speak in complete sentences and symmetric chest movement Comments: Has still a cough about every 1 every 2 or 3 minutes *Routine Cardiovascular Exam Cardiovascular: Present RRR, Normal S1 and Normal S2 Comments: No cardiac issues found nailbeds brisk capillary refill no edema to the distal extremities heart sounds were normal *Routine Abdominal Exam Abdominal: Present soft, normoactive bowel sounds and obese Comments: Patient reported no nausea or vomiting abdomen soft nontender to palpation *Routine Rectal Exam Rectal:: deferred *Routine Genitalia Exam Genitalia:: deferred *Routine Extremities Exam Extremities: Present pulses intact and normal capillary refill Comments: Normal extremity exam Routine Back/Spine/Pelvis Exam Back/Spine: Present full ROM and CVA tenderness (Right-sided CVA tenderness) Back image: 2 1. Area of tenderness to light tapping *Routine Skin Exam Skin: Present intact, dry, warm and normal turgor Comments: No signs of rash or lesions *Routine Neurological Exam Neurological: Present alert, oriented X3, CN II-XII intact, normal reflexes, altered mental status, normal tone, vision grossly intact, hearing grossly intact and normal speech Routine Psychiatric Exam Psychiatric: Present normal affect, normal thought process, cooperative, good insight and good judgment Comments: Very friendly person to talk with. She is a good historian and no signs of distress. H&P: Result Impressions 1. Bronchitis, that is apparently resolving treated with a Zithromax 2. Hyponatremia with possible severely elevated blood sugars that has been caused by steroid Dosepak that has led the probably early dehydration with a decrease and sodium on the lab work 3. Poorly controlled diabetes mellitus Imaging and Cardiology Chest x-ray: Status: image reviewed by me Additional comments: Do agree with radiology report there is atelectasis or small amount of infiltrate in the basilar area of the right lung Assessment and Plan *Assessment and plan (1) Pyelonephritis: Status: Acute Category: Medical Code(s): N12 - Tubulo-interstitial nephritis, not specified as acute or chronic (2) Urinary tract infection: Status: Acute Qualifiers: Urinary tract infection type: acute pyelonephritis Qualified Code(s): N 10 - Acute pyelonephritis Category: Medical Code(s): N39.0 - Urinary tract infection, site not specified (3) Hyponatremia: Status: Acute Category: Medical Code(s): E87.1 - Hypo-osmolality and hyponatremia (4) Right flank pain: Status: Acute Category: Medical Code(s): R10.9 - Unspecified abdominal pain (5) Acute hyponatremia: Status: Acute Category: Medical Code(s): E87.1 - Hypo-osmolality and hyponatremia (6) Acute bronchitis: Status: Inactive Qualifiers: Bronchitis organism: unspecified organism Qualified Code(s): J20.9 - Acute bronchitis, unspecified Category: Medical Code(s): J20.9 - Acute bronchitis, unspecified (7) Diabetes mellitus: Status: Acute Qualifiers: Diabetes mellitus type: type 2 Diabetes mellitus care home insulin use: without care home use Diabetes mellitus complication status: without complication Qualified Code(s): E11.9 - Type 2 diabetes mellitus without complications Category: Medical Code(s): E11.9 - Type 2 diabetes mellitus without complications (8) Cough: Status: Acute Category: Medical Code(s): R05.9 - Cough, unspecified Plan 1. Potential urinary tract infection with potential pyelonephritis related on labs and physical exam. Will continue the Rocephin and monitor for any increasing signs of fever increased signs of right flank pain or dysuria. 2. Diabetes mellitus being on steroids that probably resulted in hyponatremia, patient has received IV fluids in the ER and is stable at this time we will put on a regular diet and monitor labs to correct sodium content. Also will have ACHS fingersticks and with low sliding scale and continue her home blood sugar medications. 3. Recent bronchitis , still has mild cough will have DuoNebs as needed. Patient will be up out of bed without assistance, encourage spirometry. 4. Discharge planning, to correct the underlying hyponatremia, treat any type of urinary tract infection/kidney infection. Follow-up with patient on her diabetes mellitus and may need further follow-up with her primary care to increase the amount of medications he is on as she stated she was only taking metformin at this time.
[2024-08-16 02:39] VITALS: BP 152/75; PULSE 78; RESP 16; TEMP 36.8; O2SAT 97; BMI 33.6
[2024-08-16 02:45] LABS: Reflex Lactic Add Lactic Reflex
[2024-08-16 03:41] LABS: Lactic Acid Follow Up (RFLX 1) 2.8 mmol/L (0.7-2.1)
[2024-08-16 04:00] VITALS: BP 140/74; PULSE 78; PULSE 79; RESP 16; TEMP 36.6; O2SAT 96; BMI 33.7
[2024-08-16 05:18] LABS: Basophils # 0.1 K/mm3 (0-0.2); Eosinophils # 0.3 K/mm3 (0.0-0.4); Eosinophils % 2.5 % (0.1-12.0); Hematocrit 33.9 % (37.0-47.0); Lymphocytes # 2.1 K/mm3 (0.7-4.5); Lymphocytes % 20.7 % (10-50); Mean Corpuscular HGB Conc 34.4 g/dL (31.8-35.4); Mean Corpuscular Hemoglobin 30.1 pg (27.0-31.2); Mean Corpuscular Volume 87.5 fl (81-99); Mean Platelet Volume 7.2 fl (7.4-10.4); Monocytes # 0.4 K/mm3 (0.1-1.0); Monocytes % 4.1 % (1.7-9.3); Neutrophils # 7.3 K/mm3 (1.8-7.8); Neutrophils % 71.6 % (37.0-80.0); Platelet Count 248 K/mm3 (142-424); Red Blood Count 3.87 M/mm3 (4.20-5.40); White Blood Count 10.2 K/mm3 (4.8-10.8)
[2024-08-16 05:22] LABS: Albumin Level 3.3 g/dl (3.5-5.0); Chloride 95 mmol/L (98-107); Hemoglobin 11.6 g/dL (12.2-16.2); Potassium 3.8 mmoL/L (3.5-5.1); Sodium 126 mmol/L (136-145)
[2024-08-16 05:24] LABS: Blood Urea Nitrogen 20 mg/dl (7-17); Creatinine Clearance Estimated 81 mL/min (50-200); Estimated Glomerular Filt Rate 84 ml/min (>60); GFR (African American) 102 ML/MIN (>60)
[2024-08-16 05:25] LABS: Alanine Aminotransferase 29 U/L (12-78); Albumin/Globulin Ratio 1.2 (1.1-1.8); Alkaline Phosphatase 87 U/L (38-126); Anion Gap 14.8 mEq/L (5-15); Aspartate Amino Transferase 30 U/L (14-36); Bilirubin,Total 0.6 mg/dl (0.2-1.3); Calcium 9.3 mg/dl (8.4-10.2); Carbon Dioxide 20 mmol/L (22.0-30.0); Globulin 2.8 g/dL (1.3-3.2); Glucose 343 mg/dl (74-100); Magnesium 1.2 mg/dl (1.6-2.3); Total Protein,Serum 6.1 g/dl (6.3-8.2)
[2024-08-16 05:30] LABS: Reflex Lactic (2 hrs) Add Lactic Reflex
[2024-08-16 05:37] LABS: Troponin I 0.02 ng/ml (0.00-0.034)
[2024-08-16 06:01] LABS: POC Glucose,Bedside 320 (70-110)
[2024-08-16] MEDS: MAGNESIUM SULFATE IN WATER 2 GM/50 ML PIGGYBACK IV ×3 (06:02→08:32)
[2024-08-16] MEDS: humaLOG 100 UNITS/ML 10ML VIAL (SSI) SUBCUT ×3 (06:02→17:04)
[2024-08-16 06:33] LABS: Lactic Acid Follow up (RFLX 2) 2.4 mmol/L (0.7-2.1)
[2024-08-16 08:00] VITALS: BP 137/60; PULSE 77; PULSE 80; RESP 18; TEMP 36.7; O2SAT 95
[2024-08-16] MEDS: LISINOPRIL 20MG TABLET 40 MG PO (08:28)
[2024-08-16] MEDS: FLUOXETINE 20MG CAPSULE 40 MG PO (08:28)
[2024-08-16] MEDS: METFORMIN 500MG TABLET 750 MG PO (08:28)
[2024-08-16 12:00] VITALS: BP 157/77; PULSE 70; PULSE 72; RESP 18; TEMP 36.4; O2SAT 96
[2024-08-16] MEDS: 0.9 % SODIUM CHLORIDE 1000ML 1,000 ML 999 ML IV ×2 (12:18→17:06)
[2024-08-16] MEDS: INSULIN GLARGINE 100 UNITS/ML 10ML VIAL 10 UNIT SUBCUT (12:39)
[2024-08-16 15:34] LABS: Chloride 98 mmol/L (98-107)
[2024-08-16 15:35] LABS: Potassium 3.6 mmoL/L (3.5-5.1); Sodium 128 mmol/L (136-145)
[2024-08-16 15:37] LABS: Blood Urea Nitrogen 18 mg/dl (7-17); Creatinine Clearance Estimated 81 mL/min (50-200); Estimated Glomerular Filt Rate 63 ml/min (>60); GFR (African American) 76 ML/MIN (>60)
[2024-08-16 15:38] LABS: Anion Gap 11.6 mEq/L (5-15); Calcium 8.5 mg/dl (8.4-10.2); Carbon Dioxide 22 mmol/L (22.0-30.0); Glucose 212 mg/dl (74-100)
[2024-08-16 16:00] VITALS: BP 148/85; PULSE 81; PULSE 90; RESP 14; TEMP 36.7; O2SAT 95
[2024-08-16 16:16] LABS: Magnesium 2.1 mg/dl (1.6-2.3)
[2024-08-16 16:57] LABS: POC Glucose,Bedside 262 (70-110)
[2024-08-16 16:57] LABS: POC Glucose,Bedside 195 (70-110)
[2024-08-16 17:14] LABS: POC Glucose,Bedside 218 (70-110)
[2024-08-16 18:00] LABS: Lactic Acid 1.7 mmol/L (0.7-2.1)
--- NOTE | 2024-08-16 18:09 | EXP.DC.SUM ---
General Admission date:: 08/16/24 HPI HPI HPI: This 64-year-old female who is a patient of Dr. Vora., Was seen approximately a week ago due to a terrible cough. She was placed on what sounds to be a prednisone Dosepak and also azithromycin. She has taken these and finished the last pills a day or so ago, but has continued to feel poorly. And also having back pain. Denies any dysuria, but on exam is noted to have right CVA tenderness, labs show that she is quite hyponatremic down into the 120s, WBCs in the urine numerous to count bacteria in the .urin negative for leuks and nitrites . Patient also noted still having a cough but denies any shortness of breath chest x-ray showed some right basilar atelectasis versus an infiltrate . After talking with the ER physician and the patient. I do feel it is prudent to go ahead and admit her to correct hypo-hyponatremia, and also monitor urine and for CVA tenderness.. She has received 1 dose of Rocephin in the emergency room. She has no fever at this time. But noted that her hemoglobin A1c is 9.4 and her only medication has been metformin. History of insulin use in the past but lost weight and stopped that after 3 months., Is noted several years ago 2015 being into the hospital for a week due to a respiratory infection. Patient noted that she had smoked for more than 30 years but she stopped that 6 years ago but continues to vape. So I do agree with the ER physician that she is fragile at this point in time and do not want to miss sending her home and having pyelonephritis or worsening hyponatremia to occur.. For this reason I will admit her to the floor start her on regular food IV fluids are not needed at this time. She did receive 1 L of normal saline in the emergency room. Noting that there is no other information and our medical record on her since 2019 Exam Data for Last 24 hours Vital signs and Labs for Last 24 Hours: Temp Pulse Resp BP Pulse Ox O2 Del Method 98.1 F 81 14 148/85 H 95 Room Air 08/16/24 16:00 08/16/24 16:00 08/16/24 16:00 08/16/24 16:00 08/16/24 16:00 08/16/24 16:00 Laboratory Results - last 24 hr 08/15/24 22:34: Sodium 126 L, Potassium 4.4, Chloride 92 L, Carbon Dioxide 23, Anion Gap 15.4 H, BUN 23 H, Creatinine 0.80, Estimated Creat Clear 80, Estimated GFR 72, Est GFR ( Amer) 87, Glucose 298 H, Calcium 10.9 H, Total Bilirubin 0.7, AST 35, ALT 32, Alkaline Phosphatase 116, Troponin I < 0.01, Total Protein 7.1, Albumin 4.2, Globulin 2.9, Albumin/Globulin Ratio 1.4, HIV 1&2 Antibody Rapid Nonreactive 08/15/24 22:38: VBG pH 7.39, VBG pCO2 40.7, VBG pO2 47.2 H, VBG HCO3 24.1, VBG Total CO2 25.4, VBG O2 Saturation 82.0 H, VBG Base Excess -0.8, VBG Lactic Acid 2.9 H 08/15/24 22:49: WBC 11.5 H, RBC 4.50, Hgb 13.2, Hct 39.3, MCV 87.3, MCH 29.4, MCHC 33.7, RDW 13.0, Plt Count 306, MPV 7.2 L, Neut % (Auto) 67.5, Lymph % (Auto) 24.1, [place] % (Auto) 3.7, Eos % (Auto) 3.2, Baso % (Auto) 1.5, Neut # (Auto) 7.8, Lymph # (Auto) 2.8, [place] # (Auto) 0.4, Eos # (Auto) 0.4, Baso # (Auto) 0.2, Hemoglobin A1c 9.4 H 08/15/24 23:00: Urine Color Yellow, Urine Appearance Clear, Urine pH 5.5, Ur Specific [place] 1.025, Urine Protein Negative, Urine Glucose (UA) 1+, Urine Ketones Negative, Urine Blood 1+ A, Urine Nitrate Negative, Urine Bilirubin Negative, Urine Urobilinogen 0.2, Ur Leukocyte Esterase Trace, Urine RBC 10-20, Urine WBC Tntc, Ur Squamous Epith Cells Tntc, Urine Bacteria 4+ 08/16/24 01:15: Troponin I 0.01 08/16/24 03:24: Lactate 2.8 H 08/16/24 05:07: WBC 10.2, RBC 3.87 L, Hgb 11.6 L D, Hct 33.9 L, MCV 87.5, MCH 30.1, MCHC 34.4, RDW 13.0, Plt Count 248, MPV 7.2 L, Neut % (Auto) 71.6, Lymph % (Auto) 20.7, [place] % (Auto) 4.1, Eos % (Auto) 2.5, Baso % (Auto) 1.0, Neut # (Auto) 7.3, Lymph # (Auto) 2.1, [place] # (Auto) 0.4, Eos # (Auto) 0.3, Baso # (Auto) 0.1, Sodium 126 L, Potassium 3.8, Chloride 95 L, Carbon Dioxide 20 L, Anion Gap 14.8, BUN 20 H, Creatinine 0.70, Estimated Creat Clear 81, Estimated GFR 84, Est GFR ( Amer) 102, Glucose 343 H, Calcium 9.3, Magnesium 1.2 L, Total Bilirubin 0.6, AST 30, ALT 29, Alkaline Phosphatase 87, Troponin I 0.02, Total Protein 6.1 L, Albumin 3.3 L D, Globulin 2.8, Albumin/Globulin Ratio 1.2 08/16/24 05:54: POC Glucose 320 H* 08/16/24 06:17: Lactate 2.4 H 08/16/24 10:22: POC Glucose 262 H 08/16/24 13:45: POC Glucose 195 H 08/16/24 14:45: Magnesium 2.1 D 08/16/24 14:55: Sodium 128 L, Potassium 3.6, Chloride 98, Carbon Dioxide 22, Anion Gap 11.6, BUN 18 H, Creatinine 0.90 D, Estimated Creat Clear 81, Estimated GFR 63, Est GFR ( Amer) 76 D, Glucose 212 H D, Calcium 8.5 08/16/24 15:57: Lactate 1.7 08/16/24 16:56: POC Glucose 218 H I & O for Last 24 hours: Intake & Output 08/13/24 08/14/24 08/15/24 08/16/24 23:59 23:59 23:59 23:59 Intake Total 990 / 990 Output Total 0 / 0 Balance 990 / 990 Weight 90.718 kg 91.767 kg Results Data Completed and Pending Labs on day of discharge: Labs from last 24 hours 08/16/24 08/16/24 08/16/24 16:56 15:57 14:55 WBC RBC Hgb Hct MCV MCH MCHC RDW Plt Count MPV Neut % (Auto) Lymph % (Auto) [place] % (Auto) Eos % (Auto) Baso % (Auto) Neut # (Auto) Lymph # (Auto) [place] # (Auto) Eos # (Auto) Baso # (Auto) VBG pH VBG pCO2 VBG pO2 VBG HCO3 VBG Total CO2 VBG O2 Saturation VBG Base Excess VBG Lactic Acid Sodium 128 L Potassium 3.6 Chloride 98 Carbon Dioxide 22 Anion Gap 11.6 BUN 18 H Creatinine 0.90 D Estimated Creat Clear 81 Estimated GFR 63 Est GFR ( Amer) 76 D Glucose 212 H D POC Glucose 218 H Hemoglobin A1c Lactate 1.7 Calcium 8.5 Magnesium Total Bilirubin AST ALT Alkaline Phosphatase Troponin I Total Protein Albumin Globulin Albumin/Globulin Ratio Urine Color Urine Appearance Urine pH Ur Specific [place] Urine Protein Urine Glucose (UA) Urine Ketones Urine Blood Urine Nitrate Urine Bilirubin Urine Urobilinogen Ur Leukocyte Esterase Urine RBC Urine WBC Ur Squamous Epith Cells Urine Bacteria HIV 1&2 Antibody Rapid 08/16/24 08/16/24 08/16/24 14:45 13:45 10:22 WBC RBC Hgb Hct MCV MCH MCHC RDW Plt Count MPV Neut % (Auto) Lymph % (Auto) [place] % (Auto) Eos % (Auto) Baso % (Auto) Neut # (Auto) Lymph # (Auto) [place] # (Auto) Eos # (Auto) Baso # (Auto) VBG pH VBG pCO2 VBG pO2 VBG HCO3 VBG Total CO2 VBG O2 Saturation VBG Base Excess VBG Lactic Acid Sodium Potassium Chloride Carbon Dioxide Anion Gap BUN Creatinine Estimated Creat Clear Estimated GFR Est GFR ( Amer) Glucose POC Glucose 195 H 262 H Hemoglobin A1c Lactate Calcium Magnesium 2.1 D Total Bilirubin AST ALT Alkaline Phosphatase Troponin I Total Protein Albumin Globulin Albumin/Globulin Ratio Urine Color Urine Appearance Urine pH Ur Specific [place] Urine Protein Urine Glucose (UA) Urine Ketones Urine Blood Urine Nitrate Urine Bilirubin Urine Urobilinogen Ur Leukocyte Esterase Urine RBC Urine WBC Ur Squamous Epith Cells Urine Bacteria HIV 1&2 Antibody Rapid 08/16/24 08/16/24 08/16/24 06:17 05:54 05:07 WBC 10.2 RBC 3.87 L Hgb 11.6 L D Hct 33.9 L MCV 87.5 MCH 30.1 MCHC 34.4 RDW 13.0 Plt Count 248 MPV 7.2 L Neut % (Auto) 71.6 Lymph % (Auto) 20.7 [place] % (Auto) 4.1 Eos % (Auto) 2.5 Baso % (Auto) 1.0 Neut # (Auto) 7.3 Lymph # (Auto) 2.1 [place] # (Auto) 0.4 Eos # (Auto) 0.3 Baso # (Auto) 0.1 VBG pH VBG pCO2 VBG pO2 VBG HCO3 VBG Total CO2 VBG O2 Saturation VBG Base Excess VBG Lactic Acid Sodium 126 L Potassium 3.8 Chloride 95 L Carbon Dioxide 20 L Anion Gap 14.8 BUN 20 H Creatinine 0.70 Estimated Creat Clear 81 Estimated GFR 84 Est GFR ( Amer) 102 Glucose 343 H POC Glucose 320 H* Hemoglobin A1c Lactate 2.4 H Calcium 9.3 Magnesium 1.2 L Total Bilirubin 0.6 AST 30 ALT 29 Alkaline Phosphatase 87 Troponin I 0.02 Total Protein 6.1 L Albumin 3.3 L D Globulin 2.8 Albumin/Globulin Ratio 1.2 Urine Color Urine Appearance Urine pH Ur Specific [place] Urine Protein Urine Glucose (UA) Urine Ketones Urine Blood Urine Nitrate Urine Bilirubin Urine Urobilinogen Ur Leukocyte Esterase Urine RBC Urine WBC Ur Squamous Epith Cells Urine Bacteria HIV 1&2 Antibody Rapid 08/16/24 08/16/24 08/15/24 03:24 01:15 23:00 WBC RBC Hgb Hct MCV MCH MCHC RDW Plt Count MPV Neut % (Auto) Lymph % (Auto) [place] % (Auto) Eos % (Auto) Baso % (Auto) Neut # (Auto) Lymph # (Auto) [place] # (Auto) Eos # (Auto) Baso # (Auto) VBG pH VBG pCO2 VBG pO2 VBG HCO3 VBG Total CO2 VBG O2 Saturation VBG Base Excess VBG Lactic Acid Sodium Potassium Chloride Carbon Dioxide Anion Gap BUN Creatinine Estimated Creat Clear Estimated GFR Est GFR ( Amer) Glucose POC Glucose Hemoglobin A1c Lactate 2.8 H Calcium Magnesium Total Bilirubin AST ALT Alkaline Phosphatase Troponin I 0.01 Total Protein Albumin Globulin Albumin/Globulin Ratio Urine Color Yellow Urine Appearance Clear Urine pH 5.5 Ur Specific [place] 1.025 Urine Protein Negative Urine Glucose (UA) 1+ Urine Ketones Negative Urine Blood 1+ A Urine Nitrate Negative Urine Bilirubin Negative Urine Urobilinogen 0.2 Ur Leukocyte Esterase Trace Urine RBC 10-20 Urine WBC Tntc Ur Squamous Epith Cells Tntc Urine Bacteria 4+ HIV 1&2 Antibody Rapid 08/15/24 08/15/24 08/15/24 22:49 22:38 22:34 WBC 11.5 H RBC 4.50 Hgb 13.2 Hct 39.3 MCV 87.3 MCH 29.4 MCHC 33.7 RDW 13.0 Plt Count 306 MPV 7.2 L Neut % (Auto) 67.5 Lymph % (Auto) 24.1 [place] % (Auto) 3.7 Eos % (Auto) 3.2 Baso % (Auto) 1.5 Neut # (Auto) 7.8 Lymph # (Auto) 2.8 [place] # (Auto) 0.4 Eos # (Auto) 0.4 Baso # (Auto) 0.2 VBG pH 7.39 VBG pCO2 40.7 VBG pO2 47.2 H VBG HCO3 24.1 VBG Total CO2 25.4 VBG O2 Saturation 82.0 H VBG Base Excess -0.8 VBG Lactic Acid 2.9 H Sodium 126 L Potassium 4.4 Chloride 92 L Carbon Dioxide 23 Anion Gap 15.4 H BUN 23 H Creatinine 0.80 Estimated Creat Clear 80 Estimated GFR 72 Est GFR ( Amer) 87 Glucose 298 H POC Glucose Hemoglobin A1c 9.4 H Lactate Calcium 10.9 H Magnesium Total Bilirubin 0.7 AST 35 ALT 32 Alkaline Phosphatase 116 Troponin I < 0.01 Total Protein 7.1 Albumin 4.2 Globulin 2.9 Albumin/Globulin Ratio 1.4 Urine Color Urine Appearance Urine pH Ur Specific [place] Urine Protein Urine Glucose (UA) Urine Ketones Urine Blood Urine Nitrate Urine Bilirubin Urine Urobilinogen Ur Leukocyte Esterase Urine RBC Urine WBC Ur Squamous Epith Cells Urine Bacteria HIV 1&2 Antibody Rapid Nonreactive DS: Diagnosis Discharge Diagnosis (1) Pyelonephritis: Status: Acute Code(s): N12 - Tubulo-interstitial nephritis, not specified as acute or chronic (2) Urinary tract infection: Status: Acute Code(s): N39.0 - Urinary tract infection, site not specified Qualifiers: Urinary tract infection type: acute pyelonephritis Qualified Code(s): N10 - Acute pyelonephritis (3) Hyponatremia: Status: Acute Code(s): E87.1 - Hypo-osmolality and hyponatremia (4) Right flank pain: Status: Acute Code(s): R10.9 - Unspecified abdominal pain (5) Acute hyponatremia: Status: Acute Code(s): E87.1 - Hypo-osmolality and hyponatremia (6) Acute bronchitis: Status: Inactive Code(s): J20.9 - Acute bronchitis, unspecified Qualifiers: Bronchitis organism: unspecified organism Qualified Code(s): J20.9 - Acute bronchitis, unspecified (7) Diabetes mellitus: Status: Acute Code(s): E11.9 - Type 2 diabetes mellitus without complications Qualifiers: Diabetes mellitus type: type 2 Diabetes mellitus fpc insulin use: without pre owned sales consultant use Diabetes mellitus complication status: without complication Qualified Code(s): E11.9 - Type 2 diabetes mellitus without complications (8) Cough: Status: Acute Code(s): R05.9 - Cough, unspecified Meds Home Medications and Allergies Home Medications ?Medication ?Instructions ?Recorded ?Confirmed ?Type fluoxetine 40 mg capsule 40 mg PO DAILY Depression 07/31/18 08/16/24 History hydrochlorothiazide 25 mg tablet 25 mg PO DAILY bp 07/31/18 08/16/24 History meloxicam 7.5 mg tablet 7.5 mg PO DAILY anti-inflammatory 07/31/18 08/16/24 History benazepril 40 mg tablet 40 mg PO DAILY 11/15/19 08/16/24 History atorvastatin 20 mg tablet 20 mg PO HS 08/16/24 08/16/24 History benzonatate 200 mg capsule 200 mg PO TIDP PRN Cough 08/16/24 08/16/24 History buspirone 10 mg tablet 10 mg PO BID 08/16/24 08/16/24 History estradiol 2 mg tablet 2 mg PO DAILY 08/16/24 08/16/24 History levofloxacin 750 mg tablet 750 mg PO DAILY 4 days #4 tabs 08/16/24 Rx levothyroxine 88 mcg tablet 88 mcg PO DAILY 08/16/24 08/16/24 History metformin 500 mg tablet,extended 1,000 mg (2 x 500 mg) PO BID 30 08/16/24 08/16/24 Rx release 24 hr days #0 tabs omeprazole 10 mg capsule,delayed 10 mg PO DAILY 08/16/24 08/16/24 History release oxybutynin chloride 10 mg 10 mg PO DAILY 08/16/24 08/16/24 History tablet,extended release 24 hr New Prescriptions to Start Prescriptions: levofloxacin [place] Allergies Allergy/AdvReac Type Severity Reaction Status Date / Time No Known Allergies Allergy Verified 11/15/19 10:37 Discharge Plan Disposition Patient Disposition: Home, Self-Care Follow up Plan Prescriptions/Medication Reconciliation: New levofloxacin 750 mg tablet 750 mg PO DAILY 4 Days Qty: 4 0RF Continued benazepril 40 mg tablet 40 mg PO DAILY fluoxetine 40 MG capsule 40 mg PO DAILY meloxicam 7.5 MG tablet 7.5 mg PO DAILY hydrochlorothiazide 25 MG tablet 25 mg PO DAILY levothyroxine 88 mcg tablet 88 mcg PO DAILY buspirone 10 mg tablet 10 mg PO BID atorvastatin 20 mg tablet 20 mg PO HS Patient Comments: TAKE 1 TABLET BY MOUTH ONCE DAILY benzonatate 200 mg capsule 200 mg PO TIDP PRN (Reason: Cough) Patient Comments: TAKE 1 CAPSULE BY MOUTH THREE TIMES DAILY NEEDED estradiol 2 mg tablet 2 mg PO DAILY Patient Comments: TAKE 1 TABLET BY MOUTH ONCE DAILY oxybutynin chloride 10 mg tablet extended release 24hr 10 mg PO DAILY Patient Comments: TAKE 1 TABLET BY MOUTH ONCE DAILY FOR 90 DAYS omeprazole 10 mg capsule,delayed release(DR/EC) 10 mg PO DAILY Patient Comments: TAKE 1 CAPSULE BY MOUTH ONCE DAILY 30 MINUTES BEFORE MORNING MEAL ONCE A DAY Changed metformin 500 mg tablet extended release 24 hr 1,000 mg PO BID 30 Days Qty: 0 0RF Patient Comments: TAKE 2 TABLETS BY MOUTH ONCE DAILY WITH EVENING MEAL Problem Reconciliation Problems Reviewed?: Yes Patient Discharge Instructions Additional Instructions: Please follow-up with your PCP within 1 week to further evaluate your diabetes. Your hemoglobin A1c is 9.4%. For this reason, I have increased your metformin to 1000 mg twice a day. I have prescribed you levofloxacin for your UTI. If your urine culture shows resistance to this bacteria, we will call you. Patient Instructions: DI for Urinary Tract Infection (UTI), DI for Hyponatremia Print Language: Swedish Providers Primary Care Provider: Byron Huggins Admit Provider: [place] Attending Provider: [place]
--- NOTE | 2024-08-18 13:20 | SW/DCPLANNER ---
Spoke with patient and said that everything is going good. We are going to call her Dr and have him call in her new prescription to [facility]. Patient stated that we are just excellent here at [facility].
== END 2024-08-16 18:46 | disposition home or self-care (01) ==
LOC: ER 23:50 → 2ND 08-16 03:28
PROVIDERS: Emergency Medicine; Nurse Practitioner Family; Admitting Provider Student in an Organized Health Care Education/Training Program; Emergency Provider Emergency Medicine; PCP Family Medicine; Visit Provider Student in an Organized Health Care Education/Training Program
DX: N12 Tubulo-interstitial nephritis, not specified as acute or chronic (principal); N10 Acute pyelonephritis; E87.1 Hypo-osmolality and hyponatremia; R10.9 Unspecified abdominal pain; J20.9 Acute bronchitis, unspecified; E11.65 Type 2 diabetes mellitus with hyperglycemia; R05.9 Cough, unspecified; Z79.899 Other long term (current) drug therapy; Z79.84 Long term (current) use of oral hypoglycemic drugs; F17.290 Nicotine dependence, other tobacco product, uncomplicated
CPT/HCPCS: 36415; 71045; 80048; 80053; 81001; 82803; 82962; 83036; 83605; 83735; 84484; 85025; 87040; 87086; 87389; 93005; 99285; G0378; J0696; J3475; J7030

== ENCOUNTER 2025-07-16 16:44 | Outpatient (CLI) | payer MEDICARE, SELFPAY ==
--- NOTE | 2025-07-16 | MM_ITS ---
PROCEDURE INFORMATION: Exam: MG Bilateral Screening 3D Mammography Exam date and time: 07/16/2025 4:52 PM Age: 65 years old Clinical indication: Screening examination TECHNIQUE: Imaging protocol: Bilateral Screening tomosynthesis and 2D mammography including computer-aided detection (CAD) when performed. COMPARISON: 1. MG MM DIG SCREENING MAMM BI W/CAD 10/22/2019 5:13 PM 2. MG SCBI MM Dig screening mamm BI w/CAD 05/27/2018 9:06 AM FINDINGS: MAMMOGRAPHY: Breast composition: There are scattered areas of fibroglandular density. Mass: None. Architectural distortion: None. Calcifications: No suspicious calcifications. Asymmetric density: None. Skin thickening: None. Axillary adenopathy: None. IMPRESSION: No mammographic evidence of malignancy. Annual screening is recommended unless otherwise clinically indicated. ASSESSMENT: BI-RADS Category 1: Negative.
== END 2025-07-16 23:59 | disposition home or self-care (01) ==
LOC: RAD 16:45
PROVIDERS: PCP Family Medicine; Visit Provider Nurse Practitioner
DX: Z12.31 Encounter for screening mammogram for malignant neoplasm of breast (principal); R92.323 Mammographic fibroglandular density, bilateral breasts
CPT/HCPCS: 77063; 77067